=== PATIENT | male | born 1985 | race Caucasian/White ===

== ENCOUNTER → 2021-06-29 | Outpatient (CLI) | payer OTHER ==
[~2021-06-29] MED LIST: IBUPROFEN800 MG PO; PERCOCET 7.5-31 EACH PO
== END ==
LOC: KOH-I 13:32
DX: S83.242A Other tear of medial meniscus, current injury, left knee, initial encounter (principal); S83.252A Bucket-handle tear of lateral meniscus, current injury, left knee, initial encounter
CPT/HCPCS: 73721

== ENCOUNTER → 2021-07-10 | Day surgery (SDC) | payer OTHER ==
[~2021-07-10] VITALS: Ht 188 cm; Wt 103.0 kg
== END | disposition home or self-care (01) ==
LOC: OR 07:07
DX: S83.252A Bucket-handle tear of lateral meniscus, current injury, left knee, initial encounter (principal); M67.52 Plica syndrome, left knee; F17.290 Nicotine dependence, other tobacco product, uncomplicated; X50.1XXA Overexertion from prolonged static or awkward postures, initial encounter
CPT/HCPCS: C1713; J0171; J0690; J1100; J1170; J2001; J2250; J2405; J2704; J3010; J7120